=== PATIENT | male | born 1985 | race Caucasian/White ===

== ENCOUNTER 2019-11-07 21:58 | Emergency (ER) | payer MEDICAID ==
[~2019-11-07] VITALS: Ht 185.4 cm; Wt 72.7 kg
[2019-11-07] MEDS ORDERED: ondansetron/PF 4mg/2ml inj IV ONE ×2 (22:30→23:15)
[2019-11-07] MEDS ORDERED: morphine 4 MG/ML inj SYRINge IV PRN ×2 (22:30→23:15)
[2019-11-07] MEDS ORDERED: normal saline 1000ML IV soln IVB ONE ×2 (22:30→23:15)
[2019-11-07 22:44] LABS: BASOPHILS # (AUTO) 0.1 X10'3 (0-0.2); BASOPHILS % (AUTO) 0.6 % (0-1); EOSINOPHILS # (AUTO) 0.2 X10'3 (0-0.9); EOSINOPHILS % (AUTO) 1.7 % (0-6); HEMATOCRIT 45.2 % (42.0-52.0); HEMOGLOBIN 15.3 g/dl (14.0-17.9); LYMPHOCYTES # (AUTO) 2.7 X10'3 (1.1-4.8); LYMPHOCYTES % (AUTO) 19.6 % (21-51); MEAN CORPUSCULAR HEMOGLOBIN 31.8 PG (27.0-31.0); MEAN CORPUSCULAR HGB CONC 33.8 g/dL (33.0-36.5); MEAN CORPUSCULAR VOLUME 94.2 FL (78-98); MEAN PLATELET VOLUME 7.9 FL (7.4-10.4); MONOCYTES # (AUTO) 1.3 X10'3 (0-0.9); MONOCYTES % (AUTO) 9.3 % (2-12); NEUTROPHILS # (AUTO) 9.5 X10'3 (1.8-7.7); NEUTROPHILS % (AUTO) 68.8 % (42-75); PLATELET COUNT 462 X10'3 (140-440); RED CELL DISTRIBUTION WIDTH 12.8 % (11.5-14.5); WHITE BLOOD COUNT 13.8 X10'3 (4.5-11.0)
[2019-11-07 22:59] LABS: ALANINE AMINOTRANSFERASE 19 U/L (12-78); ALBUMIN/GLOBULIN RATIO 0.9 (1.1-1.5); ALKALINE PHOSPHATASE 69 IU/L (46-116); ANION GAP 10 (8-16); ASPARTATE AMINO TRANSFERASE 15 U/L (10-37); BILIRUBIN,TOTAL 0.3 MG/DL (0.1-1.0); BLOOD UREA NITROGEN 13 MG/DL (7-18); BUN/CREATININE RATIO 12.1 (5.4-32.0); CALCIUM 9.5 MG/DL (8.5-10.1); CHLORIDE 103 MMOL/L (99-107); CREATININE 1.07 MG/DL (0.60-1.10); GLUCOSE 108 MG/DL (70-104); LIPASE 782 U/L (73-393); POTASSIUM 3.7 MMOL/L (3.5-5.1); SODIUM 142 MMOL/L (135-145); TOTAL CARBON DIOXIDE 29.1 MMOL/L (24-32); TOTAL PROTEIN 8.3 G/DL (6.4-8.2); eGFR 79 ML/MIN
[2019-11-07 23:00] VITALS: BP 177/107
[2019-11-07 23:13] LABS: CLARITY,URINE CLEAR (Clear); COLOR,URINE YELLOW (Yellow); GLUCOSE, URINE NEGATIVE (Neg); KETONES,URINE NEGATIVE (Neg); LEUKOCYTE ESTERASE ,URINE NEGATIVE (Neg); NITRITES, URINE NEGATIVE (Neg); OCCULT BLOOD,URINE MODERATE (Neg); PH,URINE 6.5 (4.8-8.0); PROTEIN,URINE TRACE mg/dl (Neg); UROBILINOGEN,URINE 0.2 E.U/dL (0.2-1.0)
[2019-11-07] MEDS ORDERED: ketorolac tromethamine 15mg/ml inj. IV ONE (23:15)
[2019-11-07 23:16] LABS: UA COLLECTION TYPE CLN CATCH MIDSTREAM
[2019-11-07 23:18] LABS: BACTERIA,URINE FEW /HPF (Neg); RBC,URINE 0-2 /HPF (0-2); SQUAMOUS EPITHELIAL CELL,UR FEW /LPF (FEW); WBC,URINE 0-4 /HPF (0-4)
[2019-11-07 23:19] LABS: MUCUS STRANDS MODERATE /LPF (Neg)
== END 2019-11-07 23:54 | disposition home or self-care (01) ==
LOC: ER 22:00
DX: R11.2 Nausea with vomiting, unspecified (principal); D72.829 Elevated white blood cell count, unspecified; R10.9 Unspecified abdominal pain; R50.9 Fever, unspecified; F12.90 Cannabis use, unspecified, uncomplicated; Z88.8 Allergy status to other drugs, medicaments and biological substances; Z79.899 Other long term (current) drug therapy
CPT/HCPCS: 36415; 80053; 81001; 83690; 85025; 96361; 96374; 96375; 99284; J1885; J2270; J2405; J7030

== ENCOUNTER 2019-11-09 01:19 | Emergency (ER) | payer MEDICAID ==
[~2019-11-09] VITALS: Ht 185.4 cm; Wt 72.0 kg
[2019-11-09] MEDS ORDERED: morphine 4 MG/ML inj SYRINge IV STA (01:58)
[2019-11-09] MEDS ORDERED: ketorolac trometh. 30mg/ml inj. IV ONE (02:00)
[2019-11-09] MEDS ORDERED: ondansetron/PF 4mg/2ml inj IV ONE (02:00)
[2019-11-09 02:02] LABS: CLARITY,URINE CLEAR (Clear); COLOR,URINE YELLOW (Yellow); GLUCOSE, URINE NEGATIVE (Neg); KETONES,URINE NEGATIVE (Neg); LEUKOCYTE ESTERASE ,URINE NEGATIVE (Neg); NITRITES, URINE NEGATIVE (Neg); OCCULT BLOOD,URINE SMALL (Neg); PROTEIN,URINE NEGATIVE (Neg); UROBILINOGEN,URINE 0.2 E.U/dL (0.2-1.0)
[2019-11-09 02:07] LABS: BASOPHILS # (AUTO) 0.1 X10'3 (0-0.2); BASOPHILS % (AUTO) 0.8 % (0-1); EOSINOPHILS # (AUTO) 0.3 X10'3 (0-0.9); EOSINOPHILS % (AUTO) 2.3 % (0-6); HEMATOCRIT 41.9 % (42.0-52.0); HEMOGLOBIN 14.3 g/dl (14.0-17.9); LYMPHOCYTES % (AUTO) 25.9 % (21-51); MEAN CORPUSCULAR HEMOGLOBIN 32.4 PG (27.0-31.0); MEAN CORPUSCULAR VOLUME 95.1 FL (78-98); MEAN PLATELET VOLUME 7.9 FL (7.4-10.4); MONOCYTES # (AUTO) 1.2 X10'3 (0-0.9); MONOCYTES % (AUTO) 10.7 % (2-12); NEUTROPHILS # (AUTO) 6.9 X10'3 (1.8-7.7); NEUTROPHILS % (AUTO) 60.3 % (42-75); PLATELET COUNT 400 X10'3 (140-440); RED BLOOD COUNT 4.41 X10'6 (4.70-6.10); UA COLLECTION TYPE CLN CATCH MIDSTREAM; WBC,URINE NONE SEEN /HPF (0-4); WHITE BLOOD COUNT 11.5 X10'3 (4.5-11.0)
[2019-11-09 02:08] LABS: BACTERIA,URINE FEW /HPF (Neg); MUCUS STRANDS FEW /LPF (Neg); SQUAMOUS EPITHELIAL CELL,UR FEW /LPF (FEW)
[2019-11-09 02:24] LABS: ALANINE AMINOTRANSFERASE 23 U/L (12-78); ALBUMIN 3.4 G/DL (3.4-5.0); ALBUMIN/GLOBULIN RATIO 0.9 (1.1-1.5); ALKALINE PHOSPHATASE 63 IU/L (46-116); ANION GAP 8 (8-16); ASPARTATE AMINO TRANSFERASE 13 U/L (10-37); BILIRUBIN,TOTAL 0.4 MG/DL (0.1-1.0); BLOOD UREA NITROGEN 12 MG/DL (7-18); CALCIUM 9.1 MG/DL (8.5-10.1); CHLORIDE 102 MMOL/L (99-107); CREATININE 1.09 MG/DL (0.60-1.10); GLUCOSE 106 MG/DL (70-104); LIPASE 1070 U/L (73-393); POTASSIUM 3.9 MMOL/L (3.5-5.1); SODIUM 138 MMOL/L (135-145); TOTAL CARBON DIOXIDE 28.4 MMOL/L (24-32); TOTAL PROTEIN 7.2 G/DL (6.4-8.2); eGFR 77 ML/MIN
[2019-11-09] MEDS ORDERED: HYDROcodone/acetaminophen 10/325mg tab PO ONE (03:45)
[2019-11-09] MEDS ORDERED: ONDA4TAB6 PO (03:53)
[2019-11-09] MEDS ORDERED: HYDR-4353 PO (03:53)
[2019-11-09 03:56] VITALS: BP 132/83
[2019-11-10] MEDS ORDERED: ACET-3068 PO (10:54)
== END 2019-11-09 04:03 | disposition home or self-care (01) ==
LOC: ER 01:19
DX: K85.20 Alcohol induced acute pancreatitis without necrosis or infection (principal); F12.90 Cannabis use, unspecified, uncomplicated; Z88.8 Allergy status to other drugs, medicaments and biological substances; Z79.899 Other long term (current) drug therapy
CPT/HCPCS: 36415; 80053; 81001; 83690; 85025; 96374; 96375; 99284; J1885; J2270; J2405

== ENCOUNTER 2019-11-10 09:12 | Emergency (ER) | payer MEDICAID ==
[~2019-11-10] VITALS: Ht 185.4 cm; Wt 70.0 kg
[~2019-11-10 09:12] MED LIST: HYDR-4353 PO; ONDA4TAB6 PO
[2019-11-10] MEDS ORDERED: normal saline 1000ML IV soln IVB ONE (09:35)
[2019-11-10] MEDS ORDERED: morphine 4 MG/ML inj SYRINge IV ONE (09:35)
[2019-11-10] MEDS ORDERED: pantoprazole 40 MG vial IV ONE (09:35)
[2019-11-10] MEDS ORDERED: iohexol 300mg/ml 100ml inj. ONE (09:37)
[2019-11-10 10:10] LABS: BASOPHILS % (AUTO) 0.4 % (0-1); EOSINOPHILS # (AUTO) 0.2 X10'3 (0-0.9); EOSINOPHILS % (AUTO) 2.3 % (0-6); HEMATOCRIT 41.9 % (42.0-52.0); HEMOGLOBIN 14.3 g/dl (14.0-17.9); LYMPHOCYTES # (AUTO) 1.8 X10'3 (1.1-4.8); LYMPHOCYTES % (AUTO) 21.9 % (21-51); MEAN CORPUSCULAR HEMOGLOBIN 32.3 PG (27.0-31.0); MEAN CORPUSCULAR HGB CONC 34.1 g/dL (33.0-36.5); MEAN CORPUSCULAR VOLUME 94.6 FL (78-98); MONOCYTES # (AUTO) 1.2 X10'3 (0-0.9); MONOCYTES % (AUTO) 14.5 % (2-12); NEUTROPHILS # (AUTO) 4.9 X10'3 (1.8-7.7); NEUTROPHILS % (AUTO) 60.9 % (42-75); PLATELET COUNT 345 X10'3 (140-440); RED BLOOD COUNT 4.43 X10'6 (4.70-6.10); RED CELL DISTRIBUTION WIDTH 12.6 % (11.5-14.5)
[2019-11-10 10:19] LABS: ALANINE AMINOTRANSFERASE 16 U/L (12-78); ALBUMIN 3.4 G/DL (3.4-5.0); ALBUMIN/GLOBULIN RATIO 0.8 (1.1-1.5); ALKALINE PHOSPHATASE 58 IU/L (46-116); ASPARTATE AMINO TRANSFERASE 13 U/L (10-37); BILIRUBIN,TOTAL 0.7 MG/DL (0.1-1.0); BLOOD UREA NITROGEN 12 MG/DL (7-18); BUN/CREATININE RATIO 12.1 (5.4-32.0); CALCIUM 8.9 MG/DL (8.5-10.1); CHLORIDE 97 MMOL/L (99-107); CREATININE 0.99 MG/DL (0.60-1.10); GLUCOSE 79 MG/DL (70-104); LIPASE 108 U/L (73-393); POTASSIUM 4.2 MMOL/L (3.5-5.1); TOTAL CARBON DIOXIDE 30.6 MMOL/L (24-32); TOTAL PROTEIN 7.5 G/DL (6.4-8.2); eGFR 86 ML/MIN
[2019-11-10 10:21] LABS: ANION GAP 8 (8-16); SODIUM 136 MMOL/L (135-145)
[2019-11-10] MEDS ORDERED: ACET-3068 PO (10:54)
[2019-11-10 11:15] VITALS: BP 137/85
[2019-11-10] MEDS ORDERED: HYDROcodone/acetaminophen 5mg/325mg tablet PO ONE (11:35)
== END 2019-11-10 11:45 | disposition home or self-care (01) ==
LOC: ER 09:12
DX: R10.9 Unspecified abdominal pain (principal); F12.90 Cannabis use, unspecified, uncomplicated; R11.2 Nausea with vomiting, unspecified; F17.200 Nicotine dependence, unspecified, uncomplicated; Z72.89 Other problems related to lifestyle; Z79.899 Other long term (current) drug therapy
CPT/HCPCS: 36415; 74177; 80053; 83690; 85025; 96361; 96374; 96375; 99285; C9113; J2270; J7030; Q9967

== ENCOUNTER 2019-11-12 05:33 | Emergency (ER) | payer MEDICAID ==
[~2019-11-12] VITALS: Ht 185.4 cm; Wt 72.7 kg
[~2019-11-12 05:33] MED LIST changes: +ACET-3068 PO
[2019-11-12] MEDS ORDERED: morphine 4 MG/ML inj SYRINge IV PRN (06:00)
[2019-11-12] MEDS ORDERED: normal saline 1000ML IV soln IVB ONE (06:00)
[2019-11-12] MEDS ORDERED: ondansetron/PF 4mg/2ml inj IV ONE (06:00)
[2019-11-12 06:41] LABS: BASOPHILS % (AUTO) 0.5 % (0-1); EOSINOPHILS # (AUTO) 0.2 X10'3 (0-0.9); EOSINOPHILS % (AUTO) 2.3 % (0-6); HEMATOCRIT 35.8 % (42.0-52.0); HEMOGLOBIN 12.2 g/dl (14.0-17.9); LYMPHOCYTES # (AUTO) 1.2 X10'3 (1.1-4.8); LYMPHOCYTES % (AUTO) 12.7 % (21-51); MEAN CORPUSCULAR HEMOGLOBIN 32.1 PG (27.0-31.0); MEAN CORPUSCULAR HGB CONC 34.1 g/dL (33.0-36.5); MEAN CORPUSCULAR VOLUME 94.1 FL (78-98); MEAN PLATELET VOLUME 8.1 FL (7.4-10.4); MONOCYTES # (AUTO) 1.2 X10'3 (0-0.9); MONOCYTES % (AUTO) 12.7 % (2-12); NEUTROPHILS # (AUTO) 6.7 X10'3 (1.8-7.7); NEUTROPHILS % (AUTO) 71.8 % (42-75); PLATELET COUNT 398 X10'3 (140-440); RED CELL DISTRIBUTION WIDTH 12.7 % (11.5-14.5); WHITE BLOOD COUNT 9.3 X10'3 (4.5-11.0)
[2019-11-12 06:52] LABS: ALANINE AMINOTRANSFERASE 12 U/L (12-78); ALBUMIN 3.1 G/DL (3.4-5.0); ALBUMIN/GLOBULIN RATIO 0.8 (1.1-1.5); ALKALINE PHOSPHATASE 54 IU/L (46-116); ANION GAP 6 (8-16); ASPARTATE AMINO TRANSFERASE 11 U/L (10-37); BILIRUBIN,TOTAL 0.2 MG/DL (0.1-1.0); BLOOD UREA NITROGEN 13 MG/DL (7-18); BUN/CREATININE RATIO 15.5 (5.4-32.0); CALCIUM 8.6 MG/DL (8.5-10.1); CHLORIDE 104 MMOL/L (99-107); CREATININE 0.84 MG/DL (0.60-1.10); GLUCOSE 104 MG/DL (70-104); LIPASE 165 U/L (73-393); POTASSIUM 4.6 MMOL/L (3.5-5.1); SODIUM 137 MMOL/L (135-145); TOTAL CARBON DIOXIDE 26.7 MMOL/L (24-32); TOTAL PROTEIN 7.1 G/DL (6.4-8.2); eGFR > 90 ML/MIN
[2019-11-12 06:58] LABS: CLARITY,URINE CLEAR (Clear); COLOR,URINE YELLOW (Yellow); GLUCOSE, URINE NEGATIVE (Neg); KETONES,URINE NEGATIVE (Neg); LEUKOCYTE ESTERASE ,URINE NEGATIVE (Neg); NITRITES, URINE NEGATIVE (Neg); OCCULT BLOOD,URINE MODERATE (Neg); PROTEIN,URINE NEGATIVE (Neg)
[2019-11-12] MEDS ORDERED: ketorolac trometh. 30mg/ml inj. IV ONE (07:10)
[2019-11-12 07:13] LABS: BACTERIA,URINE NONE SEEN /HPF (Neg); MUCUS STRANDS MODERATE /LPF (Neg); SQUAMOUS EPITHELIAL CELL,UR NONE SEEN /LPF (FEW); WBC,URINE NONE SEEN /HPF (0-4)
[2019-11-12 07:18] LABS: UA COLLECTION TYPE VOIDED
[2019-11-12] MEDS ORDERED: HYDR-4353 PO (07:37)
[2019-11-12 07:40] VITALS: BP 128/86
== END 2019-11-12 07:47 | disposition home or self-care (01) ==
LOC: ER 05:34
DX: R10.9 Unspecified abdominal pain (principal); R11.0 Nausea; F12.90 Cannabis use, unspecified, uncomplicated; Z72.89 Other problems related to lifestyle; Z88.8 Allergy status to other drugs, medicaments and biological substances; Z79.899 Other long term (current) drug therapy
CPT/HCPCS: 36415; 80053; 81001; 83690; 85025; 96374; 96375; 99284; J1885; J2270; J2405; J7030

== ENCOUNTER 2019-11-13 04:18 | Emergency (ER) | payer MEDICAID, OTHER ==
[~2019-11-13] VITALS: Ht 185.4 cm; Wt 72.7 kg
[2019-11-13 04:51] LABS: CLARITY,URINE CLEAR (Clear); COLOR,URINE YELLOW (Yellow); GLUCOSE, URINE NEGATIVE (Neg); KETONES,URINE NEGATIVE (Neg); LEUKOCYTE ESTERASE ,URINE NEGATIVE (Neg); NITRITES, URINE NEGATIVE (Neg); OCCULT BLOOD,URINE LARGE (Neg); PROTEIN,URINE TRACE mg/dl (Neg)
[2019-11-13 04:53] LABS: UA COLLECTION TYPE CLN CATCH MIDSTREAM
[2019-11-13 04:55] LABS: BACTERIA,URINE FEW /HPF (Neg); SQUAMOUS EPITHELIAL CELL,UR FEW /LPF (FEW); WBC,URINE 0-4 /HPF (0-4)
[2019-11-13 04:56] LABS: MUCUS STRANDS MANY /LPF (Neg)
[2019-11-13 05:07] LABS: ALANINE AMINOTRANSFERASE 15 U/L (12-78); ALBUMIN 3.1 G/DL (3.4-5.0); ALBUMIN/GLOBULIN RATIO 0.7 (1.1-1.5); ALKALINE PHOSPHATASE 53 IU/L (46-116); AMYLASE 57 U/L (25-115); ANION GAP 7 (8-16); ASPARTATE AMINO TRANSFERASE 17 U/L (10-37); BILIRUBIN,TOTAL 0.3 MG/DL (0.1-1.0); BLOOD UREA NITROGEN 12 MG/DL (7-18); CALCIUM 8.8 MG/DL (8.5-10.1); CHLORIDE 102 MMOL/L (99-107); GLUCOSE 107 MG/DL (70-104); LIPASE 138 U/L (73-393); POTASSIUM 4.3 MMOL/L (3.5-5.1); SODIUM 136 MMOL/L (135-145); TOTAL CARBON DIOXIDE 26.9 MMOL/L (24-32); TOTAL PROTEIN 7.3 G/DL (6.4-8.2); eGFR 85 ML/MIN
[2019-11-13] MEDS ORDERED: ketorolac trometh. 30mg/ml inj. IV ONE (05:15)
[2019-11-13 05:28] LABS: BASOPHILS % (AUTO) 0.4 % (0-1); EOSINOPHILS # (AUTO) 0.1 X10'3 (0-0.9); EOSINOPHILS % (AUTO) 1.4 % (0-6); HEMATOCRIT 37.8 % (42.0-52.0); HEMOGLOBIN 12.8 g/dl (14.0-17.9); LYMPHOCYTES # (AUTO) 1.5 X10'3 (1.1-4.8); LYMPHOCYTES % (AUTO) 17.8 % (21-51); MEAN CORPUSCULAR HEMOGLOBIN 32.3 PG (27.0-31.0); MEAN CORPUSCULAR HGB CONC 33.8 g/dL (33.0-36.5); MEAN CORPUSCULAR VOLUME 95.5 FL (78-98); MEAN PLATELET VOLUME 8.8 FL (7.4-10.4); MONOCYTES # (AUTO) 1.2 X10'3 (0-0.9); MONOCYTES % (AUTO) 13.9 % (2-12); NEUTROPHILS # (AUTO) 5.7 X10'3 (1.8-7.7); NEUTROPHILS % (AUTO) 66.5 % (42-75); PLATELET COUNT 372 X10'3 (140-440); RED BLOOD COUNT 3.96 X10'6 (4.70-6.10); RED CELL DISTRIBUTION WIDTH 12.7 % (11.5-14.5); WHITE BLOOD COUNT 8.6 X10'3 (4.5-11.0)
[2019-11-13 07:43] VITALS: BP 141/81
--- NOTE | 2019-11-13 08:03 | NUR ---
PATIENT HAS BEEN DISCHARGED AND SPOKEN TO BY ER MD. PATIENT WANTS RX FOR NORCO, BUT ER MD REFUSES TO PRESCRIBE OPIATES AT THIS TIME. IV REMOVED. BUS PASS OFFERED, BUT PATIENT REFUSED. PATIENT CONTINUES TO REFUSE TO LEAVE AND IS CURSING AT STAFF. SECURITY CALLED TO ASSIST WITH PATIENT DEPARTURE.
== END 2019-11-13 08:05 | disposition home or self-care (01) ==
LOC: ER 04:19
DX: K85.90 Acute pancreatitis without necrosis or infection, unspecified (principal); R10.9 Unspecified abdominal pain; F12.90 Cannabis use, unspecified, uncomplicated; Z72.89 Other problems related to lifestyle; Z88.8 Allergy status to other drugs, medicaments and biological substances; Z79.899 Other long term (current) drug therapy
CPT/HCPCS: 36415; 74176; 80053; 81001; 82150; 83690; 85025; 96374; 99284; J1885

== ENCOUNTER 2021-02-23 01:40 | Emergency (ER) | payer MEDICAID, OTHER ==
[~2021-02-23] VITALS: Ht 180.3 cm; Wt 70.5 kg
[~2021-02-23 01:40] MED LIST changes: -ACET-3068 PO; -HYDR-4353 PO
[2021-02-23 01:42] VITALS: BP 142/92
== END 2021-02-23 02:28 | disposition home or self-care (01) ==
LOC: ER 01:41
DX: S90.821A Blister (nonthermal), right foot, initial encounter (principal); F15.90 Other stimulant use, unspecified, uncomplicated; F12.90 Cannabis use, unspecified, uncomplicated; Z72.89 Other problems related to lifestyle; Z88.8 Allergy status to other drugs, medicaments and biological substances; Z79.899 Other long term (current) drug therapy; X58.XXXA Exposure to other specified factors, initial encounter; Y93.89 Activity, other specified; Y92.89 Other specified places as the place of occurrence of the external cause; Y99.8 Other external cause status
CPT/HCPCS: 99283